=== PATIENT | male | born 2005 | race African-American/Black ===

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

== ENCOUNTER 2024-11-15 08:38 | Emergency (ER) | payer OTHER ==
--- NOTE | 2024-11-15 09:19 | ED ---
Extremity Problem HPI - General Chief complaint: Extremity Problem,Nontraumatic Stated complaint: Left hand pain Time Seen by Provider: 11/15/24 08:41 Source: patient, RN notes reviewed Mode of arrival: ambulatory Limitations: no limitations - History of Present Illness Initial comments: 18-year-old male presents emergency department complaint of left hand, wrist pain. Patient states that several last week or so. Patient states he wakes up melanite and his hand is numb he has to shake it off. Patient states that he does not have any decrease in strength. Patient states it is uncomfortable at time. He is left-hand dominant. 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 - Related Data Home Medications Medication Instructions Recorded Confirmed Amoxicillin 500 mg PO BID 11/12/21 11/12/21 Cetirizine HCl [Zyrtec] 10 mg PO DAILY 11/12/21 11/12/21 Fluticasone Nasal [place] [Flonase 1 - 2 spray EA NOSTRIL BID PRN 11/12/21 11/12/21 Nasal [place]] Previous Rx's Medication Instructions Recorded Clotrimazole Cream [Lotrimin Cream] 1 applic TOPICAL BID #15 gm 08/12/22 Hydrocortisone Cream 1 applic TOPICAL BID PRN #28 gm 08/12/22 [Hydrocortisone 1% Cream] Albuterol Inhaler [Ventolin Hfa 1 puff INHALATION TID PRN #8 gm 11/02/22 Inhaler] Azithromycin [Zithromax] 250 mg PO DAILY 4 Days #4 tab 11/02/22 predniSONE 50 mg PO DAILY #5 tab 11/15/24 Allergies Allergy/AdvReac Type Severity Reaction Status Date / Time No Known Allergies Allergy Verified 11/15/24 08:50 Review of Systems ROS Statement: Those systems with pertinent positive or pertinent negative responses have been documented in the HPI. ROS Other: All systems not noted in ROS Statement are negative. Past Medical History Past Medical History: Asthma History of Any Multi-Drug Resistant Organisms: None Reported Past Surgical History: No Surgical Hx Reported Past Psychological History: Anxiety Smoking Status: Never smoker Past Alcohol Use History: None Reported Past Drug Use History: None Reported General Exam Limitations: no limitations General appearance: alert, in no apparent distress Head exam: Present: atraumatic, normocephalic, normal inspection Eye exam: Present: normal appearance, PERRL, EOMI. Absent: scleral icterus, conjunctival injection, periorbital swelling Respiratory exam: Present: normal lung sounds bilaterally. Absent: respiratory distress, wheezes, rales, rhonchi, stridor Cardiovascular Exam: Present: regular rate, normal rhythm, normal heart sounds. Absent: systolic murmur, diastolic murmur, rubs, gallop, clicks Extremities exam: Present: other (Bilateral upper extremities neurovascular intact full range of motion full-strength positive Elise) Course Vital Signs 11/15/24 08:47 Temperature 97.9 F Pulse Rate 76 Respiratory 18 Rate Blood Pressure 133/75 O2 Sat by Pulse 99 Oximetry Medical Decision Making - Medical Decision Making Was pt. sent in by a medical professional or institution (, VERONICA, CAREER SERVICES MANAGER, urgent care, hospital, or retirement...) When possible be specific @ -No Did you speak to anyone other than the patient for history (EMS, parent, family, police, friend...)? What history was obtained from this source @ -No Did you review nursing and triage notes (agree or disagree)? Why? @ -I reviewed and agree with nursing and triage notes Were old charts reviewed (outside hosp., previous admission, EMS record, old EKG, old radiological studies, urgent care reports/EKG's, retirement records)? Report findings @ -No old charts were reviewed Differential Diagnosis (chest pain, altered mental status, abdominal pain women, abdominal pain men, vaginal bleeding, weakness, fever, dyspnea, syncope, headache, dizziness, GI bleed, back pain, seizure, CVA, palpatations, mental health, musculoskeletal)? @ -Cervical radiculopathy, tendinitis, carpal tunnel EKG interpreted by me (3pts min.). @ -[None none X-rays interpreted by me (1pt min.). @ -None done CT interpreted by me (1pt min.). @ -None done U/S interpreted by me (1pt. min.). @ -None done What testing was considered but not performed or refused? (CT, X-rays, U/S, labs)? Why? @ -None What meds were considered but not given or refused? Why? @ -None Did you discuss the management of the patient with other professionals (professionals i.e. Dr., PA, CAREER SERVICES MANAGER, lab, RT, psych nurse, social media marketer, skiver box toe, teacher, education officer, case planner)? Give summary @ -No Was smoking cessation discussed for >3mins.? @ -No Was critical care preformed (if so, how long)? @ -No Were there social determinants of health that impacted care today? How? (Homelessness, low income, unemployed, alcoholism, drug addiction, transportation, low edu. Level, literacy, decrease access to med. care, nursing home, rehab)? @ -No Was there de-escalation of care discussed even if they declined (Discuss DNR or withdrawal of care, Hospice)? DNR status @ -No What co-morbidities impacted this encounter? (DM, HTN, Smoking, COPD, CAD, Cancer, CVA, ARF, Chemo, Hep., AIDS, mental health diagnosis, sleep apnea, morbid obesity)? @ -None Was patient admitted / discharged? Hospital course, mention meds given and route, prescriptions, significant lab abnormalities, going to OR and other pertinent info. @ -Discharge patient has left hand carpal tunnel. Patient discharged. Advised to use cock-up splint, anti-inflammatories ice and rest. Undiagnosed new problem with uncertain prognosis? @ -No Drug Therapy requiring intensive monitoring for toxicity (Heparin, Nitro, Insulin, Cardizem)? @ -No Were any procedures done? @ -No Diagnosis/symptom? @ -carpel tunnel left Acute, or Chronic, or Acute on Chronic? @ -Acute Uncomplicated (without systemic symptoms) or Complicated (systemic symptoms)? @ -Uncomplicated Side effects of treatment? @ -No Exacerbation, Progression, or Severe Exacerbation? @ -No Poses a threat to life or bodily function? How? (Chest pain, USA, IA, pneumonia, PE, COPD, DKA, ARF, appy, cholecystitis, CVA, Diverticulitis, Homicidal, Suicidal, threat to staff... and all critical care pts) @ -No Disposition Clinical Impression: Carpal tunnel syndrome of left wrist Disposition: HOME SELF-CARE Condition: Stable Instructions (If sedation given, give patient instructions): Tendinitis (ED) Additional Instructions: Please return to the Emergency Department if symptoms worsen or any other nathaniel rns. Prescriptions: predniSONE 50 mg PO DAILY #5 tab Is patient prescribed a controlled substance at d/c from ED?: No Referrals: Warren Mohan MD [Primary Care Provider] - 1-2 days Michelle Valdivia [Doctor of Osteopathic Medicine] - 1-2 days Time of Disposition: 09:19
[2024-11-15 09:38] VITALS: BP 130/82; PULSE 72; RESP 16; TEMP 97.8
== END 2024-11-15 10:09 | disposition home or self-care (01) ==
LOC: EC 08:38
DX: G56.02 Carpal tunnel syndrome, left upper limb (principal)
CPT/HCPCS: 99283

== ENCOUNTER 2025-01-24 21:32 | Emergency (ER) | payer OTHER ==
[2025-01-24 21:43] VITALS: TEMP 98.3
--- NOTE | 2025-01-24 22:22 | ED ---
Headache HPI - General Chief Complaint: Headache Stated Complaint: Headache Time Seen by Provider: 01/24/25 22:00 Source: patient, family, RN notes reviewed Mode of arrival: ambulatory Limitations: no limitations - History of Present Illness Initial Comments: This is a 19-year-old male presenting to the emergency department with his mother for concerns of a persistent headache since 1400 yesterday. Patient states that the pain is mostly located to the back of his head and will mildly wraparound to the front described as a throbbing sensation. Patient denies associated photophobia, phonophobia, visual disturbances. Does endorse associated nausea with no reported emesis. Denies neck pain, fevers, chills, cough, rhinorrhea, congestion. Denies history of migraines. Is presenting for further evaluation. Has not taken medications since 1500 this afternoon. - Related Data Home Medications Medication Instructions Recorded Confirmed Amoxicillin 500 mg PO BID 11/12/21 11/12/21 Cetirizine HCl [Zyrtec] 10 mg PO DAILY 11/12/21 11/12/21 Fluticasone Nasal [place] [Flonase 1 - 2 spray EA NOSTRIL BID PRN 11/12/21 11/12/21 Nasal [place]] Previous Rx's Medication Instructions Recorded Clotrimazole Cream [Lotrimin Cream] 1 applic TOPICAL BID #15 gm 08/12/22 Hydrocortisone Cream 1 applic TOPICAL BID PRN #28 gm 08/12/22 [Hydrocortisone 1% Cream] Albuterol Inhaler [Ventolin Hfa 1 puff INHALATION TID PRN #8 gm 11/02/22 Inhaler] Azithromycin [Zithromax] 250 mg PO DAILY 4 Days #4 tab 11/02/22 predniSONE 50 mg PO DAILY #5 tab 11/15/24 Allergies Allergy/AdvReac Type Severity Reaction Status Date / Time No Known Allergies Allergy Verified 01/24/25 21:40 Review of Systems ROS Statement: Those systems with pertinent positive or pertinent negative responses have been documented in the HPI. ROS Other: All systems not noted in ROS Statement are negative. Past Medical History Past Medical History: Asthma History of Any Multi-Drug Resistant Organisms: None Reported Past Surgical History: No Surgical Hx Reported Past Psychological History: Anxiety Smoking Status: Never smoker Past Alcohol Use History: None Reported Past Drug Use History: None Reported General Exam Limitations: no limitations Head exam: Present: atraumatic, normocephalic, normal inspection Eye exam: Present: normal appearance, PERRL, EOMI. Absent: scleral icterus, conjunctival injection, periorbital swelling Neck exam: Present: normal inspection. Absent: tenderness, meningismus, lymphadenopathy Respiratory exam: Present: normal lung sounds bilaterally. Absent: respiratory distress, wheezes, rales, rhonchi, stridor Cardiovascular Exam: Present: regular rate, normal rhythm, normal heart sounds. Absent: systolic murmur, diastolic murmur, rubs, gallop, clicks GI/Abdominal exam: Present: soft, normal bowel sounds. Absent: distended, tenderness, guarding, rebound, rigid Extremities exam: Present: normal inspection, full ROM, normal capillary refill. Absent: tenderness, pedal edema, joint swelling, calf tenderness Psychiatric exam: Present: normal affect, normal mood Course Vital Signs 01/24/25 01/24/25 21:40 23:38 Temperature 98.3 F Pulse Rate 72 66 Respiratory 18 16 Rate Blood Pressure 136/85 113/69 O2 Sat by Pulse 98 100 Oximetry Medical Decision Making - Medical Decision Making Was pt. sent in by a medical professional or institution (, PA, STAND UP COMEDIAN, urgent care, hospital, or [facility]...) When possible be specific @ -No Did you speak to anyone other than the patient for history (EMS, parent, family, police, friend...)? What history was obtained from this source @ -No Did you review nursing and triage notes (agree or disagree)? Why? @ -I reviewed and agree with nursing and triage notes Were old charts reviewed (outside hosp., previous admission, EMS record, old EKG, old radiological studies, urgent care reports/EKG's, [facility] records)? Report findings @ -No old charts were reviewed Differential Diagnosis (chest pain, altered mental status, abdominal pain women, abdominal pain men, vaginal bleeding, weakness, fever, dyspnea, syncope, headache, dizziness, GI bleed, back pain, seizure, CVA, palpatations, mental health, musculoskeletal)? @ -Differential Headache: Migraine, tension, cluster, carbon monoxide, central venous thrombosis, pension karma temporal arteritis, acute closure glaucoma, intercranial hemorrhage, mastoiditis, sinusitis, head injury, this is not meant to be an all-inclusive list. EKG interpreted by me (3pts min.). @ -None X-rays interpreted by me (1pt min.). @ -None done CT interpreted by me (1pt min.). @ -None done U/S interpreted by me (1pt. min.). @ -None done What testing was considered but not performed or refused? (CT, X-rays, U/S, labs)? Why? @ -CT imaging of the brain was considered but deferred as patient did not lose consciousness at the time of the injury yesterday, and mechanism was not severe and there are no neurological deficits on examination. Patient is agreeable deferring CT imaging at this time as well. What meds were considered but not given or refused? Why? @ -None Did you discuss the management of the patient with other professionals (professionals i.e. , PA, STAND UP COMEDIAN, lab, RT, psych nurse, administrator social welfare, ambulatory care, teacher, environmental compliance officer, bilingual patient support caseworker)? Give summary @ -No Was smoking cessation discussed for >3mins.? @ -No Was critical care preformed (if so, how long)? @ -No Were there social determinants of health that impacted care today? How? (Homelessness, low income, unemployed, alcoholism, drug addiction, transportation, low edu. Level, literacy, decrease access to med. care, penitentiary, rehab)? @ -No Was there de-escalation of care discussed even if they declined (Discuss DNR or withdrawal of care, Hospice)? DNR status @ -No What co-morbidities impacted this encounter? (DM, HTN, Smoking, COPD, CAD, Cancer, CVA, ARF, Chemo, Hep., AIDS, mental health diagnosis, sleep apnea, morbid obesity)? @ -None Was patient admitted / discharged? Hospital course, mention meds given and route, prescriptions, significant lab abnormalities, going to OR and other pertinent info. @ -Discharge. 19 year old male presenting with mother with a headache. Overall patient is well-appearing and neurological examination is unremarkable. Patient provided with migraine cocktail. I was informed by nursing staff that patient states that he had a head injury yesterday at work. Patient states that he was at work when a tool hit the back of his head and after this he started experiencing a headache. Patient did not lose consciousness at the time of the injury. Believe that symptoms likely secondary to concussion. After patient is ready with migraine cocktail he states that he is feeling well. Concussion supportive treatment discussed at bedside. Patient is stable for discharge. Case discussed my attending Dr. Salas Undiagnosed new problem with uncertain prognosis? @ -No Drug Therapy requiring intensive monitoring for toxicity (Heparin, Nitro, Insulin, Cardizem)? @ -No Were any procedures done? @ -No Diagnosis/symptom? @ -Headache Acute, or Chronic, or Acute on Chronic? @ -Acute Uncomplicated (without systemic symptoms) or Complicated (systemic symptoms)? @ -Uncomplicated Side effects of treatment? @ -No Exacerbation, Progression, or Severe Exacerbation? @ -No Poses a threat to life or bodily function? How? (Chest pain, [place], [place], pneumonia, PE, COPD, DKA, ARF, appy, cholecystitis, CVA, Diverticulitis, Homicidal, Suicidal, threat to staff... and all critical care pts) @ -No Disposition Clinical Impression: Headache Disposition: HOME SELF-CARE Condition: Good Instructions (If sedation given, give patient instructions): Acute Headache (ED) Additional Instructions: Please return to the Emergency Department if symptoms worsen or any other concerns. Is patient prescribed a controlled substance at d/c from ED?: No Referrals: Warren Mohan MD [Primary Care Provider] - 1-2 days Time of Disposition: 23:29
[2025-01-24] MEDS: SODIUM CHLORIDE 0.9% 1,000 ML IV ONE (22:32)
[2025-01-24] MEDS: diphenhydrAMINE 50 MG/ML 1 ML VIAL IVP STA (22:33)
[2025-01-24] MEDS: ACETAMINOPHEN TAB 325 MG TAB PO STA (22:34)
[2025-01-24] MEDS: METOCLOPRAMIDE 5 MG/ML 2 ML VIAL IVP STA (22:34)
[2025-01-24] MEDS: KETOROLAC 15 MG/ML 1 ML VIAL IVP STA (22:34)
[2025-01-24 23:39] VITALS: BP 113/69; PULSE 66; RESP 16
== END 2025-01-24 23:40 | disposition home or self-care (01) ==
LOC: EC 21:32
DX: R51.9 Headache, unspecified (principal)
CPT/HCPCS: 99284; 96374; 96375 ×2; 96361; J1200; J2765; J1885